=== PATIENT | female | born 1955 | race American Indian/Alaskan Native ===

== ENCOUNTER 2016-12-27 10:28 | Outpatient (CLI) | payer BC ==
--- NOTE | 2016-12-27 12:20 | Mammography Report ---
BILATERAL MAMMOGRAM: FINDINGS: There are scattered fibroglandular densities (approximately 25%-50% glandular). No mass, distortion, suspicious calcification, or skin change is seen. Compared to prior studies in 2016 there are no interval changes identified. CAD was utilized. IMPRESSION: Negative mammogram. There is no mammographic evidence of malignancy. RECOMMENDATION: Follow-up per ACS guidelines. BI-RADS CATEGORY: 1 = Negative ACR BI-RADS MAMMOGRAPHIC CODES: 0 = Needs additional imaging evaluation; 1 = Negative; 2 = Benign; 3 = Probably benign; 4 = Suspicious; 5 = Malignant; 6 = Known biopsy-proven malignancy COMMENT: 1. Dense breast tissue, i.e., adenosis, fibrocystic changes, etc., may obscure an underlying neoplasm. 2. Approximately 10% of cancers are not detected with mammography. 3. A negative mammography report should not delay biopsy if a clinically suspicious mass is present. COMMENT: Patient follow-up letters are generated in [employer].
== END 2016-12-27 10:29 | disposition home or self-care (01) ==
LOC: MAMMO 10:28
PROVIDERS: ATTEND Internal Medicine
DX: Z12.31 Encounter for screening mammogram for malignant neoplasm of breast (principal)
CPT/HCPCS: 77067; G0202

== ENCOUNTER 2018-01-03 13:14 | Outpatient (CLI) | payer BC ==
--- NOTE | 2018-01-04 11:04 | Mammography Report ---
BILATERAL DIGITAL SCREENING MAMMOGRAM with CAD: 01/03/18 13:14:00 CLINICAL: Routine screening. COMPARISON: 12/27/16 FINDINGS: There are bilateral scattered fibroglandular densities.No mass, architectural distortion or suspicious calcifications. IMPRESSION: No mammographic evidence of malignancy. BI-RADS CATEGORY: 1 -- Negative RECOMMENDATION: Routine mammographic screening in one year.
== END 2018-01-03 13:15 | disposition home or self-care (01) ==
LOC: MAMMO 13:14
PROVIDERS: ATTEND Internal Medicine
DX: Z12.31 Encounter for screening mammogram for malignant neoplasm of breast (principal)
CPT/HCPCS: 77067

== ENCOUNTER 2018-03-06 03:12 | Emergency (ER) | payer BC ==
[2018-03-06 06:20] LABS: Basophils % (Auto) 0.3 % (0.0-1.8); Hematocrit 40.9 % (30.3-42.9); Hemoglobin 13.9 gm/dl (10.1-14.3); Lymphocytes # (Auto) 1.3 K/mm3 (1.2-5.4); Lymphocytes % (Auto) 9.6 % (13.4-35.0); Mean Corpuscular HGB Conc 34 % (30-34); Mean Corpuscular Hemoglobin 31 pg (28-32); Mean Corpuscular Volume 92 fl (79-97); Monocytes # (Auto) 0.6 K/mm3 (0.0-0.8); Monocytes % (Auto) 4.5 % (0.0-7.3); Platelet Count 327 K/mm3 (140-440); Red Blood Count 4.44 M/mm3 (3.65-5.03); Red Cell Distribution Width 13.3 % (13.2-15.2)
[2018-03-06 06:34] LABS: Alanine Aminotransferase 19 units/L (7-56); BUN/Creatinine Ratio 27; Blood Urea Nitrogen 19 mg/dL (7-17); Calcium 9.9 mg/dL (8.4-10.2); Hemolysis Index 60
[2018-03-06 08:14] LABS: Bilirubin,Urine NEG (Negative); Blood,Urine NEG (Negative); Color,Urine Yellow (Yellow); Hyaline Casts,Urine 1 /LPF; Mucus,Urine FEW /HPF; Protein,Urine <15 mg/dL mg/dL (Negative); Urobilinogen,Urine < 2.0 mg/dL (<2.0)
[2018-03-06] MEDS ORDERED: CATAPRES PO ONE (10:26)
--- NOTE | 2018-03-06 10:31 | Emergency Department Report ---
ED Abdominal Pain HPI - General Chief Complaint: Abdominal Pain Stated Complaint: ABD PAIN Time Seen by Provider: 03/06/18 10:10 Source: patient Mode of arrival: Ambulatory Limitations: No Limitations - History of Present Illness Initial Comments: 62-year-old female with past medical history of hypertension, GERD, and arthritis presents to the Hospital complaining of generalized sharp intermittent abdominal pain since last night. Patient states she had a lot of fried food and donuts last night. She took a Gas-X pill prior to arrival. While waiting to be evaluated in the ED she belched and rectal flatus and had relief of symptoms. She denies nausea, vomiting, fever, dysuria, or hematuria. Patient's blood pressure noted to be elevated and she did not have her 3 BP medications this morning because she was in the ED waiting to be evaluated. Patient can recall clonidine and hydralazine as 2 of her meds but cannot recall the third med or her dosage. Patient saw her PMD yesterday afternoon and was started on antibiotics and cough medicine for URI symptoms. She has yet to fill the medication - Related Data Home Medications Medication Instructions Recorded Confirmed Last Taken Calcium Carbonate [Calcium] 600 mg PO QDAY 11/15/16 11/21/16 11/18/16 Cholecalciferol Vit D3 [Vitamin D3] 1,000 unit PO QDAY 11/15/16 11/21/16 Chlorthalidone 25 mg PO QDAY 11/21/16 11/21/16 11/21/16 06:35 Previous Rx's Medication Instructions Recorded Last Taken Type Labetalol [Normodyne TAB] 200 mg PO BID #60 tablet 06/11/15 11/21/16 06:35 Rx hydrALAZINE [Apresoline TAB] 25 mg PO Q8HR #90 tab 06/11/15 11/21/16 06:35 Rx oxyCODONE /ACETAMINOPHEN [Percocet 1 tab PO Q6HR PRN #20 tablet 11/21/16 Unknown Rx 5/325] Mag Hydrox/Aluminum Hyd/Simeth 20 ml PO QID PRN #1 bottle 03/06/18 Unknown Rx [Maalox Advanced Suspension] Allergies Allergy/AdvReac Type Severity Reaction Status Date / Time No Known Allergies Allergy Unverified 06/08/15 12:35 ED Review of Systems ROS: Stated complaint: ABD PAIN Other details as noted in HPI Comment: All other systems reviewed and negative ED Past Medical Hx - Past Medical History Previous Medical History?: Yes Hx Hypertension: Yes (FOR [address] YR, DR. MURIEL AGUILAR - PCP) Hx Congestive Heart Failure: No Hx Diabetes: No Hx GERD: Yes (MILD) Hx Arthritis: Yes (IN KNEES) Hx Asthma: No Hx COPD: No Hx HIV: No - Surgical History Past Surgical History?: Yes - Social History Smoking Status: Former Smoker Substance Use Type: Alcohol - Medications Home Medications: Home Medications Medication Instructions Recorded Confirmed Last Taken Type Labetalol [Normodyne TAB] 200 mg PO BID #60 tablet 06/11/15 11/21/16 11/21/16 06 :35 Rx hydrALAZINE [Apresoline TAB] 25 mg PO Q8HR #90 tab 06/11/15 11/21/16 11/21/16 06 :35 Rx Calcium Carbonate [Calcium] 600 mg PO QDAY 11/15/16 11/21/16 11/18/16 History Cholecalciferol Vit D3 [Vitamin D3] 1,000 unit PO QDAY 11/15/16 11/21/16 History Chlorthalidone 25 mg PO QDAY 11/21/16 11/21/16 11/21/16 06:35 History oxyCODONE /ACETAMINOPHEN [Percocet 1 tab PO Q6HR PRN #20 tablet 11/21/16 Unknown Rx 5/325] Mag Hydrox/Aluminum Hyd/Simeth 20 ml PO QID PRN #1 bottle 03/06/18 Unknown Rx [Maalox Advanced Suspension] ED Physical Exam - General Limitations: No Limitations - Other Other exam information: General: No limitations, patient is alert in no acute distress Head exam: Atraumatic, normocephalic Eyes exam: Normal appearance, pupils equal reactive to light, extraocular movements intact ENT: Moist mucous membrane, normal oropharynx Neck exam: Normal inspection, full range of motion, no meningismus nontender Respiratory exam: Clear to auscultation bilateral, no wheezes, rales, crackles Cardiovascular: Normal rate and rhythm, normal heart sounds Abdomen: Soft, nondistended, and nontender, with normal bowel sounds, no rebound, or guarding Extremity: Full range of motion normal inspection no deformity Back: Normal Inspection, full range of motion, no tenderness Neurologic: Alert, oriented x3, cranial nerves intact, no motor or sensory deficit Psychiatric: normal affect, normal mood Skin: Warm, dry, intact ED Course Vital Signs 03/06/18 03/06/18 03/06/18 05:06 05:27 08:52 Temperature 98.0 F 98 F 98.6 F Pulse Rate 85 82 85 Respiratory 18 18 16 Rate Blood Pressure 192/91 192/91 Blood Pressure 215/77 [Right] O2 Sat by Pulse 94 95 99 Oximetry 03/06/18 03/06/18 03/06/18 10:11 10:18 10:53 Temperature 98.1 F Pulse Rate 76 76 Respiratory 18 18 Rate Blood Pressure 215/68 215/68 Blood Pressure [Right] O2 Sat by Pulse 94 Oximetry 03/06/18 11:46 Temperature Pulse Rate 80 Respiratory 16 Rate Blood Pressure Blood Pressure 185/62 [Right] O2 Sat by Pulse Oximetry - Reevaluation(s) Reevaluation #1: 03/06/18 10:30 clonidine ordered 03/06/18 11:51 BP trending downward after clonidine 0.1 mg ED Medical Decision Making - Lab Data Result diagrams: 03/06/18 05:54 03/06/18 05:54 Lab Results 03/06/18 03/06/18 03/06/18 Range/Units 05:54 05:54 Unknown WBC 13.9 H (4.5-11.0) K/mm3 RBC 4.44 (3.65-5.03) M/mm3 Hgb 13.9 (10.1-14.3) gm/dl Hct 40.9 (30.3-42.9) % MCV 92 (79-97) fl MCH 31 (28-32) pg MCHC 34 (30-34) % RDW 13.3 (13.2-15.2) % Plt Count 327 (140-440) K/mm3 Lymph % (Auto) 9.6 L (13.4-35.0) % [place] % (Auto) 4.5 (0.0-7.3) % Eos % (Auto) 0.0 (0.0-4.3) % Baso % (Auto) 0.3 (0.0-1.8) % Lymph # 1.3 (1.2-5.4) K/mm3 [place] # 0.6 (0.0-0.8) K/mm3 Eos # 0.0 (0.0-0.4) K/mm3 Baso # 0.0 (0.0-0.1) K/mm3 Seg Neutrophils % 85.6 H (40.0-70.0) % Seg Neutrophils # 11.9 H (1.8-7.7) K/mm3 Sodium 141 (137-145) mmol/L Potassium 3.7 (3.6-5.0) mmol/L Chloride 97.5 L (98-107) mmol/L Carbon Dioxide 29 (22-30) mmol/L Anion Gap 18 mmol/L BUN 19 H (7-17) mg/dL Creatinine 0.7 (0.7-1.2) mg/dL Estimated GFR > 60 ml/min BUN/Creatinine Ratio 27 % Glucose 133 H (65-100) mg/dL Calcium 9.9 (8.4-10.2) mg/dL Total Bilirubin 0.30 (0.1-1.2) mg/dL AST 24 (5-40) units/L ALT 19 (7-56) units/L Alkaline Phosphatase 59 (35-129) units/L Total Protein 7.5 (6.3-8.2) g/dL Albumin 5.0 (3.9-5) g/dL Albumin/Globulin Ratio 2.0 % Urine Color Yellow (Yellow) Urine Turbidity Clear (Clear) Urine pH 5.0 (5.0-7.0) Ur Specific [place] 1.019 (1.003-1.030) Urine Protein <15 mg/dl (Negative) mg/dL Urine Glucose (UA) Neg (Negative) mg/dL Urine Ketones Neg (Negative) mg/dL Urine Blood Neg (Negative) Urine Nitrite Neg (Negative) Urine Bilirubin Neg (Negative) Urine Urobilinogen < 2.0 (<2.0) mg/dL Ur Leukocyte Esterase Lg (Negative) Urine WBC (Auto) 9.0 H (0.0-6.0) /HPF Urine RBC (Auto) 10.0 (0.0-6.0) /HPF U Epithel Cells (Auto) 11.0 (0-13.0) /HPF Hyaline Casts 1 /LPF Urine Mucus Few /HPF - Medical Decision Making Abdominal pain Resolved after passing gas likely gas related Labs unremarkable UA with mild leukocytosis but patient denies symptoms therefore not treated (pt also did not provided a clean catch sample) Hypertension Chronic acute elevation likely secondary to missed a blood pressure med Improving after clonidine Asymptomatic Will be discharged home and instructed to continue her BP medications and to skip her clonidine dose this a.m. since we gave her a dose in the ED - Differential Diagnosis UTI, dissection, abd pain NOS, gas, diverticulitis, appendicitis Critical Care Time: No Critical care attestation.: If time is entered above; I have spent that time in minutes in the direct care of this critically ill patient, excluding procedure time. ED Disposition Clinical Impression: Gas pain, Abdominal pain, HTN (hypertension) Disposition: TO HOME OR SELFCARE Is pt being admited?: No Does the pt Need Aspirin: No Condition: Stable Instructions: Abdominal Pain (ED), Hypertension (ED) Additional Instructions: Take the medication as prescribed. You received clonidine today therefore when get home take your other blood pressure medication (but not the clonidine). Follow-up with your doctor. Return is symptoms worsen. Prescriptions: Mag Hydrox/Aluminum Hyd/Simeth [Maalox Advanced Suspension] 20 ml PO QID PRN #1 bottle PRN Reason: Gas Pain Referrals: MURIEL AGUILAR MD [Primary Care Provider] - 3-5 Days Time of Disposition: 11:58
[2018-03-06 11:46] VITALS: BP 185/62
== END 2018-03-06 12:11 | disposition home or self-care (01) ==
LOC: ED 03:12
DX: I10 Essential (primary) hypertension (principal); K21.9 Gastro-esophageal reflux disease without esophagitis; R14.1 Gas pain; M17.0 Bilateral primary osteoarthritis of knee; Z87.891 Personal history of nicotine dependence
CPT/HCPCS: 36415; 80053; 81001; 85025; 99283

== ENCOUNTER 2019-01-06 12:31 | Outpatient (CLI) | payer BC ==
--- NOTE | 2019-01-06 13:22 | Mammography Report ---
Screening mammogram: Routine views compared to prior exams dating back to 2016. The right CC view is an asymmetry in the medial breast not identified in the lateral projection nor on previous exams. The remainder the breast pattern bilaterally is unchanged with no suspicious findings. CAD used. Impression: Right breast asymmetry. Recommendation: Additional imaging of the right breast and ultrasound as needed. BI-RADS CATEGORY: 0 = Needs additional imaging evaluation ACR BI-RADS MAMMOGRAPHIC CODES: 0 = Needs additional imaging evaluation; 1 = Negative; 2 = Benign; 3 = Probably benign; 4 = Suspicious; 5 = Malignant; 6 = Known biopsy-proven malignancy COMMENT: 1. Dense breast tissue, i.e., adenosis, fibrocystic changes, etc., may obscure an underlying neoplasm. 2. Approximately 10% of cancers are not detected with mammography. 3. A negative mammography report should not delay biopsy if a clinically suspicious mass is present.
== END 2019-01-06 12:32 | disposition home or self-care (01) ==
LOC: MAMMO 12:31
PROVIDERS: ATTEND Internal Medicine
DX: Z12.31 Encounter for screening mammogram for malignant neoplasm of breast (principal); I10 Essential (primary) hypertension; E78.00 Pure hypercholesterolemia, unspecified; K21.9 Gastro-esophageal reflux disease without esophagitis; M19.90 Unspecified osteoarthritis, unspecified site; Z87.891 Personal history of nicotine dependence
CPT/HCPCS: 77067

== ENCOUNTER 2019-01-14 12:59 | Outpatient (CLI) | payer BC ==
--- NOTE | 2019-01-14 14:16 | Mammography Report ---
RIGHT DIGITAL DIAGNOSTIC MAMMOGRAM : 01/14/19 12:59:00 CLINICAL: Recalled for asymmetry. COMPARISON:01/06/19 screening FINDINGS: Additional mammographic views were performed and are negative.The previously described asymmetry on the CC view is no longer identified. IMPRESSION: Negative Mammogram. BI-RADS CATEGORY: 1 -- Negative RECOMMENDATION: Routine mammographic screening in one year. ACR BI-RADS MAMMOGRAPHIC CODES: 0 = Needs additional imaging evaluation; 1 = Negative; 2 = Benign; 3 = Probably benign; 4 = Suspicious; 5 = Malignant; 6 = Known biopsy-proven malignancy COMMENT: 1. Dense breast tissue, i.e., adenosis, fibrocystic changes, etc., may obscure an underlying neoplasm. 2. Approximately 10% of cancers are not detected with mammography. 3. A negative mammography report should not delay biopsy if a clinically suspicious mass is present. COMMENT: Patient follow-up letters are generated via our [employer] application.
== END 2019-01-14 13:00 | disposition home or self-care (01) ==
LOC: MAMMO 12:59
PROVIDERS: ATTEND Internal Medicine
DX: R92.8 Other abnormal and inconclusive findings on diagnostic imaging of breast (principal); I10 Essential (primary) hypertension; E78.00 Pure hypercholesterolemia, unspecified; K21.9 Gastro-esophageal reflux disease without esophagitis